=== PATIENT | male | born 1955 | race Caucasian/White ===

== ENCOUNTER 2021-05-24 13:51 | Outpatient (CLI) | payer OTHER ==
[2021-05-24 14:59] LABS: Mean Corpuscular HGB CONC 32.5 g/dL (32.0-36.0); Mean Corpuscular Hemoglobin 29.2 pg (27.0-33.0); Mean Platelet Volume 10.4 fl (7.4-10.4); Platelet Count 283 10x3/uL (150-450); RBC Distribution Width 13.5 % (11.5-14.5); Red Blood Cell (RBC) Count 4.79 10x6/uL (4.32-5.72)
[2021-05-24 15:16] LABS: INR-International Normal Ratio 0.9; PTT 23.1 sec (22.0-33.0); Prothrombin Time 10.4 sec (9.5-12.1)
[2021-05-25 07:57] LABS: SARS-CoV-2 PCR by NAA Not Detected (NotDetected)
== END 2021-05-24 13:52 | disposition home or self-care (01) ==
LOC: LABBT 13:51
PROVIDERS: ATTEND Neurological Surgery
DX: Z01.818 Encounter for other preprocedural examination (principal); M48.062 Spinal stenosis, lumbar region with neurogenic claudication; Z20.822 Contact with and (suspected) exposure to COVID-19
CPT/HCPCS: 85027; 85610; 85730; 93005; 93010; U0003; U0005

== ENCOUNTER 2021-05-27 05:51 | Day surgery (SDC) | payer OTHER ==
[2021-05-26 10:53] VITALS: BMI 28.9
[2021-05-27] MEDS ORDERED: Thrombin 5000 UNITS/5 ML VIAL ONE (06:10)
[2021-05-27] MEDS ORDERED: EPINEPHrine 1 MG/ML AMP ONE (06:10)
[2021-05-27] MEDS ORDERED: Neomycin-Polymyxin 1 ML AMP ONE (06:10)
[2021-05-27] MEDS ORDERED: Bupivacaine PF 0.5% 30 ML VIAL ONE (06:10)
[2021-05-27] MEDS ORDERED: Fentanyl 250 MCG/5 ML VIAL ONE (06:37)
[2021-05-27] MEDS ORDERED: Rocuronium Bromide 10 MG/ML (10ML VIAL) ONE (07:05)
[2021-05-27] MEDS ORDERED: PHENYLEPHRINE-NS 100 MCG/ML 10 ML SYRINGE ONE (07:05)
[2021-05-27] MEDS ORDERED: Ondansetron PF 4 MG/2 ML Vial ONE (07:05)
[2021-05-27] MEDS ORDERED: PROPOFOL 200 MG/20 ML VIAL ONE (07:05)
[2021-05-27] MEDS ORDERED: ePHEDrine 50 MG/ML VIAL ONE (07:05)
[2021-05-27] MEDS ORDERED: Esmolol 100 MG/10 ML VIAL ONE (07:05)
[2021-05-27] MEDS ORDERED: Ketorolac Tromethamine 30 MG/ML VIAL ONE (07:05)
[2021-05-27] MEDS ORDERED: Dexamethasone 20 MG/5 ML VIAL ONE (07:05)
[2021-05-27] MEDS ORDERED: Vecuronium 10 MG VIAL ONE (07:05)
[2021-05-27] MEDS ORDERED: Lidocaine 1% PF 5 ML VIAL ONE (07:05)
[2021-05-27] MEDS ORDERED: tiZANidine HCl 4 MG TAB PO PRN (07:14)
[2021-05-27] MEDS ORDERED: HYDROcodone/Acetaminophen 10/325 mg Tablet PO PRN (07:14)
[2021-05-27] MEDS ORDERED: Ondansetron PF 4 MG/2 ML Vial IVP PRN (07:14)
[2021-05-27] MEDS ORDERED: Morphine 2 MG/ML VIAL SLOW IVP PRN (07:14)
[2021-05-27] MEDS ORDERED: HYDROcodone/Acetaminophen 7.5/325 mg Tablet PO PRN (07:14)
[2021-05-27] MEDS ORDERED: Bisacodyl 10 MG SUPP PR PRN (07:14)
[2021-05-27] MEDS ORDERED: Acetaminophen 325 MG TAB PO PRN (07:14)
[2021-05-27] MEDS ORDERED: Promethazine 25 MG TAB PO PRN (07:14)
[2021-05-27] MEDS ORDERED: diphenhydrAMINE 50 MG/ML VIAL IVP PRN (07:14)
[2021-05-27] MEDS ORDERED: Sodium Chloride 0.9% 1,000 ML IV SCH (07:15)
[2021-05-27] MEDS ORDERED: Non-Formulary Item 1 EACH (Sildenafil Citrate [Sildenafil Citrate] 100 MG Tablet) PO PRN (07:18)
[2021-05-27] MEDS ORDERED: Lisinopril 20 MG TAB PO SCH (09:00)
[2021-05-27] MEDS ORDERED: HYDROmorphone 2 MG/ML VIAL ONE (10:44)
[2021-05-27] MEDS ORDERED: SUGAMMADEX SODIUM 200 MG/2 ML VIAL ONE (10:45)
[2021-05-27] MEDS ORDERED: Morphine Sulfate 2 MG/ML SYRINGE SLOW IVP PRN (11:25)
[2021-05-27] MEDS ORDERED: Ondansetron HCl/PF 4 MG/2 ML Vial IVP PRN (11:25)
[2021-05-27] MEDS ORDERED: HYDROmorphone 2 MG/ML VIAL SLOW IVP PRN (11:25)
[2021-05-27] MEDS ORDERED: Promethazine HCl 25 MG/ML VIAL IVPB PRN (11:25)
[2021-05-27] MEDS ORDERED: Promethazine HCl 25 MG/ML VIAL IM PRN (11:25)
[2021-05-27] MEDS ORDERED: PACU-Morphine 4MG/ML VIAL SLOW IVP PRN (11:25)
[2021-05-27] MEDS ORDERED: CEFAZOLIN 2 GM in Premix Bag 1 BAG IVPB SCH (14:00)
[2021-05-27] MEDS ORDERED: HYDROcodone/Acetaminophen 5/325 mg Tablet ONE (15:19)
[2021-05-27] MEDS ORDERED: Atorvastatin Calcium 40 MG TAB PO SCH (21:00)
[2021-05-27] MEDS ORDERED: Gabapentin 300 MG CAP PO SCH (21:00)
== END 2021-05-27 15:50 | disposition home or self-care (01) ==
LOC: SDC 05:51
PROVIDERS: ATTEND Neurological Surgery
PROC: 01NB0ZZ Release Lumbar Nerve, Open Approach (ICD-10-PCS; principal; 2021-05-27)
DX: M48.062 Spinal stenosis, lumbar region with neurogenic claudication (principal); E78.00 Pure hypercholesterolemia, unspecified; I10 Essential (primary) hypertension; Z79.899 Other long term (current) drug therapy; Z87.891 Personal history of nicotine dependence; Z88.8 Allergy status to other drugs, medicaments and biological substances; Z95.0 Presence of cardiac pacemaker
CPT/HCPCS: 76000; J0171; J0690; J1100; J1170; J1885; J2405; J2704; J3010; J3370; J3490; S0020

== ENCOUNTER 2022-05-04 13:04 | Outpatient (CLI) | payer OTHER ==
[2022-05-04 13:53] LABS: Hemoglobin 13.6 g/dL (13.5-17.5); Mean Corpuscular HGB CONC 32.5 g/dL (32.0-36.0); Mean Corpuscular Hemoglobin 28.6 pg (27.0-33.0); Mean Platelet Volume 9.9 fl (7.4-10.4); Platelet Count 350 10x3/uL (150-450); RBC Distribution Width 13.5 % (11.5-14.5); Red Blood Cell (RBC) Count 4.75 10x6/uL (4.32-5.72); White Blood Cell (WBC) Count 7.7 10x3/uL (3.5-10.5)
[2022-05-04 13:58] LABS: INR-International Normal Ratio 0.9; PTT 25.3 sec (22.0-33.0); Prothrombin Time 10.2 sec (9.5-12.1)
== END 2022-05-04 13:05 | disposition home or self-care (01) ==
LOC: LABBT 13:04
PROVIDERS: ATTEND Neurological Surgery
DX: Z01.818 Encounter for other preprocedural examination (principal); M43.16 Spondylolisthesis, lumbar region; M48.061 Spinal stenosis, lumbar region without neurogenic claudication; Z20.822 Contact with and (suspected) exposure to COVID-19
CPT/HCPCS: 85027; 85610; 85730; 87811; 93005; 93010

== ENCOUNTER 2022-05-09 06:02 | Observation (INO) | payer OTHER ==
[2022-05-09] MEDS ORDERED: Thrombin 5000 UNITS/5 ML VIAL ONE (06:25)
[2022-05-09] MEDS ORDERED: Bupivacaine PF 0.5% 30 ML VIAL ONE (06:25)
[2022-05-09] MEDS ORDERED: EPINEPHrine 1 MG/ML AMP ONE (06:25)
[2022-05-09] MEDS ORDERED: Neomycin-Polymyxin 1 ML AMP ONE (06:25)
[2022-05-09] MEDS ORDERED: HYDROcodone/Acetaminophen 7.5/325 mg Tablet PO PRN (07:16)
[2022-05-09] MEDS ORDERED: Ondansetron PF 4 MG/2 ML Vial IVP PRN (07:16)
[2022-05-09] MEDS ORDERED: diphenhydrAMINE 50 MG/ML VIAL IVP PRN (07:16)
[2022-05-09] MEDS ORDERED: Bisacodyl 10 MG SUPP PR PRN (07:16)
[2022-05-09] MEDS ORDERED: Milk Of Magnesia 30 ML UDCUP PO PRN (07:16)
[2022-05-09] MEDS ORDERED: Cyclobenzaprine 10 MG TAB PO PRN (07:16)
[2022-05-09] MEDS ORDERED: Morphine 2 MG/ML VIAL SLOW IVP PRN (07:16)
[2022-05-09] MEDS ORDERED: Mag-Al 1200 mg/1200 mg/30 ML UDCUP PO PRN (07:16)
[2022-05-09] MEDS ORDERED: Acetaminophen/Codeine 30-300mg Tablet PO PRN (07:16)
[2022-05-09] MEDS ORDERED: Prochlorperazine 10 MG/2 ML VIAL IM PRN (07:16)
[2022-05-09] MEDS ORDERED: fentaNYL Citrate/PF 100 MCG/2 ML SYRINGE ONE (07:29)
[2022-05-09] MEDS ORDERED: Esmolol 100 MG/10 ML VIAL ONE (07:30)
[2022-05-09] MEDS ORDERED: Ondansetron PF 4 MG/2 ML Vial ONE (07:30)
[2022-05-09] MEDS ORDERED: Vecuronium 10 MG VIAL ONE (07:30)
[2022-05-09] MEDS ORDERED: Lidocaine 1% PF 5 ML VIAL ONE (07:30)
[2022-05-09] MEDS ORDERED: Rocuronium Bromide 10 MG/ML (10ML VIAL) ONE (07:30)
[2022-05-09] MEDS ORDERED: Dexamethasone 20 MG/5 ML VIAL ONE (07:30)
[2022-05-09] MEDS ORDERED: SUGAMMADEX SODIUM 200 MG/2 ML VIAL ONE (07:30)
[2022-05-09] MEDS ORDERED: PROPOFOL 200 MG/20 ML VIAL ONE (07:30)
[2022-05-09] MEDS ORDERED: Phenylephrine 10 MG/ML VIAL ONE ×2 (07:30→13:35)
[2022-05-09] MEDS ORDERED: HYDROmorphone 0.5 MG/0.5 ML SYRINGE ONE (07:30)
[2022-05-09] MEDS ORDERED: CEFAZOLIN 2 GM VIAL ONE (07:36)
[2022-05-09] MEDS ORDERED: Sodium Chloride 0.9% 100 ML ONE (07:36)
[2022-05-09] MEDS ORDERED: HYDROmorphone 2 MG/ML VIAL ONE (14:16)
[2022-05-09] MEDS ORDERED: PROPOFOL 20 ML ONE (15:27)
[2022-05-09] MEDS ORDERED: Bacitracin Zinc Ointment 30 gm TUBE ONE (15:39)
[2022-05-09] MEDS ORDERED: CEFAZOLIN 2 GM in Sodium Chloride 0.9% 100 ML IVPB SCH (16:00)
[2022-05-09] MEDS ORDERED: Promethazine HCl 25 MG/ML VIAL IVPB PRN (16:30)
[2022-05-09] MEDS ORDERED: Promethazine HCl 25 MG/ML VIAL IM PRN (16:30)
[2022-05-09] MEDS ORDERED: Ondansetron HCl/PF 4 MG/2 ML Vial IVP PRN (16:30)
[2022-05-09] MEDS ORDERED: Fentanyl 100 MCG/2 ML VIAL ONE (16:52)
[2022-05-09 18:04] LABS: Hemoglobin 11.6 g/dL (14.0-18.0); Mean Corpuscular HGB CONC 32.4 g/dL (32.0-36.0); Mean Corpuscular Hemoglobin 30.1 pg (27.0-31.0); Mean Corpuscular Volume 92.8 fL (78.0-98.0); Mean Platelet Volume 7.9 fL (7.4-10.4); Platelet Count 309 thou/uL (130-400); RBC Distribution Width 12.7 % (11.5-14.5); Red Blood Cell (RBC) Count 3.87 mill/uL (4.70-6.10); White Blood Cell (WBC) Count 20.3 thou/uL (4.8-10.8)
[2022-05-09] MEDS: Pantoprazole 40 MG VIAL IVP SCH (20:17)
[2022-05-09] MEDS: Sodium Chloride 0.9% 1,000 ML IV SCH ×2 (20:54→21:16)
[2022-05-09] MEDS: HYDROcodone/Acetaminophen 10/325 mg Tablet PO PRN (21:15)
[2022-05-10] MEDS ORDERED: CEFAZOLIN 2 GM in Sodium Chloride 0.9% 100 ML IVPB SCH (05:00)
[2022-05-10] MEDS: Tamsulosin HCl 0.4 MG CAP PO SCH (06:17)
[2022-05-10 06:51] LABS: #Lymphocytes 1.8 thou/uL (1.20-3.40); #Monocytes 1.8 thou/uL (0.11-0.59); #Neutrophils 11.4 thou/uL (1.40-6.50); %Basophils 0.2 % (0.0-1.0); %Eosinophils 0.1 % (0.0-10.0); %Lymphocytes 11.8 % (21.0-51.0); %Monocytes 11.7 % (0.0-10.0); %Neutrophils 76.2 % (42.0-75.0); Hemoglobin 10.1 g/dL (14.0-18.0); Mean Corpuscular HGB CONC 32.1 g/dL (32.0-36.0); Mean Corpuscular Hemoglobin 29.7 pg (27.0-31.0); Mean Corpuscular Volume 92.6 fL (78.0-98.0); Platelet Count 247 thou/uL (130-400); RBC Distribution Width 12.8 % (11.5-14.5)
[2022-05-10 06:53] LABS: Anion Gap 15 mmol/L (10-20); BUN (Urea Nitrogen) 20 mg/dL (8.4-25.7); Calc. Creatinine Clearance 78 mL/min (70-130); Calcium 8.3 mg/dL (7.8-10.44); Carbon Dioxide 21 mmol/L (23-31); Chloride 109 mmol/L (98-107); Estimated GFR 72; Glucose 124 mg/dL (80-115); Potassium 4.7 mmol/L (3.5-5.1); Sodium 140 mmol/L (136-145)
[2022-05-10 07:43] LABS: Bilirubin Negative (Negative); Blood, Urine Large (Negative); Glucose, Urine (Dipstick) Negative (Negative); Ketone, Urine Negative (Negative); Leukocyte Small (Negative); Nitrite Negative (Negative); Protein, Urine (Dipstick) Negative (Neg-Trace); Specific Gravity, Urine 1.015 (1.005-1.030); Urobilinogen 0.2 mg/dL (Less than 2)
[2022-05-10 07:44] LABS: Clarity Clear (Clear)
[2022-05-10 07:45] LABS: Squamous Epithelial 0-3 HPF (0-3)
[2022-05-10] MEDS: Pantoprazole 40 MG VIAL IVP SCH (09:46)
[2022-05-10 11:09] VITALS: BMI 24.5
[2022-05-10] MEDS: HYDROcodone/Acetaminophen 10/325 mg Tablet PO PRN (11:23)
[2022-05-10] MEDS: Sodium Chloride 0.9% 1,000 ML IV SCH (11:37)
[2022-05-10] MEDS ORDERED: Sodium Chloride 0.9% 500 ML IVPB SCH (13:00)
[2022-05-10 13:05] LABS: Troponin I 0.017 ng/mL (< 0.028)
[2022-05-10] MEDS ORDERED: Fentanyl 100 MCG/2 ML VIAL SLOW IVP PRN (13:34)
[2022-05-10] MEDS: Gabapentin 300 MG CAP PO SCH ×2 (14:27→20:23)
[2022-05-10] MEDS: CEFAZOLIN 2 GM in Sodium Chloride 0.9% 100 ML IVPB SCH ×2 (14:28→21:40)
[2022-05-10 16:28] LABS: #Lymphocytes 1.9 thou/uL (1.20-3.40); #Monocytes 1.5 thou/uL (0.11-0.59); #Neutrophils 9.4 thou/uL (1.40-6.50); %Basophils 0.3 % (0.0-1.0); %Eosinophils 0.3 % (0.0-10.0); %Lymphocytes 14.8 % (21.0-51.0); %Monocytes 11.8 % (0.0-10.0); %Neutrophils 72.7 % (42.0-75.0); Mean Corpuscular HGB CONC 32.4 g/dL (32.0-36.0); Mean Corpuscular Hemoglobin 30.2 pg (27.0-31.0); Mean Corpuscular Volume 93.3 fL (78.0-98.0); Mean Platelet Volume 7.7 fL (7.4-10.4); Platelet Count 241 thou/uL (130-400); RBC Distribution Width 12.9 % (11.5-14.5); White Blood Cell (WBC) Count 12.9 thou/uL (4.8-10.8)
[2022-05-10 16:48] LABS: Anion Gap 15 mmol/L (10-20); BUN (Urea Nitrogen) 18 mg/dL (8.4-25.7); Calc. Creatinine Clearance 88 mL/min (70-130); Calcium 8.2 mg/dL (7.8-10.44); Carbon Dioxide 20 mmol/L (23-31); Chloride 111 mmol/L (98-107); Estimated GFR 83; Glucose 138 mg/dL (80-115); Sodium 142 mmol/L (136-145)
[2022-05-10] MEDS ORDERED: Sodium Chloride 0.9% 500 ML IV SCH (17:00)
[2022-05-10] MEDS: Acetaminophen/Codeine 30-300mg Tablet PO PRN ×2 (17:49→21:50)
[2022-05-10] MEDS ORDERED: Atorvastatin Calcium 40 MG TAB PO SCH (21:00)
[2022-05-10] MEDS ORDERED: Non-Formulary Item 1 EACH (Atorvastatin Calcium [Atorvastatin Calcium] 80 MG Tablet) PO SCH (21:00)
[2022-05-11] MEDS: Sodium Chloride 0.9% 1,000 ML IV SCH ×2 (00:29→11:35)
[2022-05-11] MEDS: CEFAZOLIN 2 GM in Sodium Chloride 0.9% 100 ML IVPB SCH ×2 (06:10→14:54)
[2022-05-11] MEDS: Tamsulosin HCl 0.4 MG CAP PO SCH (06:10)
[2022-05-11] MEDS ORDERED: Lisinopril 20 MG TAB PO SCH (09:00)
[2022-05-11] MEDS: Gabapentin 300 MG CAP PO SCH ×2 (09:27→14:56)
[2022-05-11] MEDS: Acetaminophen/Codeine 30-300mg Tablet PO PRN ×2 (09:30→14:56)
[2022-05-11 13:25] VITALS: BP 150/81; TEMP 98.5
== END 2022-05-11 16:07 | disposition home or self-care (01) ==
LOC: SDC 06:02 → SURG A 07:20
PROVIDERS: ADMIT Neurological Surgery; ATTEND Neurological Surgery
PROC: 01NB0ZZ Release Lumbar Nerve, Open Approach (ICD-10-PCS; principal; 2022-05-09)
DX: M51.16 Intervertebral disc disorders with radiculopathy, lumbar region (principal); M48.061 Spinal stenosis, lumbar region without neurogenic claudication; M43.16 Spondylolisthesis, lumbar region; Z88.8 Allergy status to other drugs, medicaments and biological substances; E78.00 Pure hypercholesterolemia, unspecified; G89.29 Other chronic pain; I10 Essential (primary) hypertension; Z95.0 Presence of cardiac pacemaker; Z79.899 Other long term (current) drug therapy; Z87.891 Personal history of nicotine dependence
CPT/HCPCS: 36415; 76000; 80048; 81003; 81015; 84484; 85025; 85027; 86850; 86900; 86901; 93005; 93010; 93970; 96365; 96375; 96376; C1713; C1768; C1776; C9113; G0378; J0171; J0690; J1100; J1170; J2370; J2405; J2704; J3010; J3370; J3490; J7030; J7050; L0639; S0020

== ENCOUNTER 2024-09-14 22:07 | Inpatient (IN) | payer MEDICARE, OTHER ==
[2024-09-14] MEDS ORDERED: Ketorolac Tromethamine 30 MG (1 mL) VIAL ONE (22:21)
[2024-09-14] MEDS ORDERED: Acetaminophen 500 MG TAB ONE (22:21)
[2024-09-14] MEDS ORDERED: cefTRIAXone (ROCEPHIN) 1 GM VIAL ONE (22:22)
[2024-09-14 22:23] LABS: #Basophils 0.14 10x3/uL (0.0-0.2); %Basophils 0.7 % (0.0-1.0); %Lymphocytes 8.8 % (21.0-51.0); %Monocytes 8.5 % (0.0-10.0); %Neutrophils 80.3 % (42.0-75.0); Hematocrit 44.8 % (42.0-52.0); Hemoglobin 13.4 g/dL (14.0-18.0); Mean Corpuscular HGB CONC 29.9 g/dL (32.0-36.0); Mean Corpuscular Hemoglobin 24.7 pg (27.0-31.0); Mean Corpuscular Volume 82.7 fL (78.0-98.0); Mean Platelet Volume 9.5 fL (7.4-10.4); Platelet Count 296 10x3/uL (130-400); RBC Distribution Width 17.4 % (11.5-14.5); Red Blood Cell (RBC) Count 5.42 mill/uL (4.70-6.10)
[2024-09-14] MEDS ORDERED: Sodium Chloride 0.9% 100 ML ONE (22:24)
[2024-09-14] MEDS ORDERED: cefTRIAXone (ROCEPHIN) 2 GM VIAL ONE (22:24)
[2024-09-14 22:38] LABS: Actual Bicarbonate (HCO3v) 19.8 mEq/L (22-28); Calcium, Ionized (venous) 0.85 mmol/L (1.16-1.32); Chloride (VBG) 104 mmol/L (98-106); Hematocrit-VBG 44 % (42.0-52.0); Hemoglobin (Hb) 14.8 g/dL (12.6-17.4); Potassium (VBG) 5.22 mmol/L (3.70-5.30); Sodium 133 mmol/L (133-146); pH (venous) 7.441 (7.32-7.43)
[2024-09-14 22:53] LABS: ALT (SGPT) 19 U/L (8-55); AST (SGOT) 19 U/L (5-34); Albumin 3.2 g/dL (3.4-4.8); Alkaline Phosphatase 63 U/L (40-110); Anion Gap 14 mmol/L (10-20); BUN (Urea Nitrogen) 18 mg/dL (8.4-25.7); Bilirubin, Total 0.9 mg/dL (0.2-1.2); Calc. Creatinine Clearance 0 mL/min (70-130); Carbon Dioxide 17 mmol/L (23-31); Chloride 105 mmol/L (98-107); Estimated GFR 40; Globulin 2.5 g/dL (2.4-3.5); Glucose 128 mg/dL (83-110); Potassium 5.2 mmol/L (3.5-5.1); Protein, Total 5.7 g/dL (5.8-8.1); Sodium 131 mmol/L (136-145)
[2024-09-14] MEDS ORDERED: NOREPINEPHRINE 8 MG/250 ML-D5W 250 ML ONE (23:01)
[2024-09-14] MEDS ORDERED: Ipratropium/Albuterol 3 ML NEB NEB PRN (23:17)
[2024-09-14] MEDS ORDERED: Ondansetron PF 4 MG/2 ML Vial IVP PRN (23:18)
[2024-09-14] MEDS ORDERED: Vancomycin 1 GM in Premix 1 BAG IVPB SCH (23:30)
[2024-09-15] MEDS ORDERED: Benzonatate 100 MG CAP PO PRN (00:04)
[2024-09-15 00:31] LABS: Bacteria/HPF None Seen HPF (None Seen); Bilirubin Negative (Negative); Blood, Urine Negative (Negative); CAUTI Indications for Culture Fever or rigors; Clarity Clear (Clear); Glucose, Urine (Dipstick) Normal (Negative); Ketone, Urine 10 mg/dL (Negative); Leukocyte Negative Leu/uL (Negative); Nitrite Negative (Negative); Protein, Urine (Dipstick) 30 mg/dL (Neg-Trace); RBC/HPF None Seen HPF (0-3); Specific Gravity, Urine 1.012 (1.002-1.036); Squamous Epithelial 0-3 HPF (0-3); Urobilinogen Normal mg/dL (Less than 2); WBC/HPF 0-3 HPF (0-3)
[2024-09-15 00:34] LABS: Urine Culture Reflex No No
[2024-09-15] MEDS ORDERED: NOREPINEPHRINE 8 MG/250 ML-D5W 250 ML IVPB SCH (01:30)
[2024-09-15] MEDS: Vancomycin (BATCH) 2 GM in Premix 1 BAG IVPB SCH (01:32)
[2024-09-15] MEDS: Sodium Chloride 0.9% 1,000 ML IV SCH (01:43)
[2024-09-15] MEDS: traMADol HCl 50 MG TAB PO SCH (02:13)
[2024-09-15 04:30] LABS: #Basophils 0.18 10x3/uL (0.0-0.2); %Basophils 0.8 % (0.0-1.0); %Eosinophils 1.1 % (0.0-10.0); %Lymphocytes 9.1 % (21.0-51.0); %Neutrophils 79.2 % (42.0-75.0); Hematocrit 42.1 % (42.0-52.0); Hemoglobin 12.4 g/dL (14.0-18.0); Mean Corpuscular HGB CONC 29.5 g/dL (32.0-36.0); Mean Corpuscular Hemoglobin 24.9 pg (27.0-31.0); Mean Corpuscular Volume 84.5 fL (78.0-98.0); Mean Platelet Volume 10.4 fL (7.4-10.4); Platelet Count 306 10x3/uL (130-400); RBC Distribution Width 17.2 % (11.5-14.5); Red Blood Cell (RBC) Count 4.98 mill/uL (4.70-6.10)
[2024-09-15 04:45] LABS: Anion Gap 14 mmol/L (10-20); BUN (Urea Nitrogen) 19 mg/dL (8.4-25.7); Calc. Creatinine Clearance 47 mL/min (70-130); Calcium 7.8 mg/dL (7.8-10.44); Carbon Dioxide 19 mmol/L (23-31); Chloride 106 mmol/L (98-107); Estimated GFR 38; Glucose 146 mg/dL (83-110); Potassium 5.5 mmol/L (3.5-5.1); Sodium 133 mmol/L (136-145)
[2024-09-15 04:54] VITALS: BMI 29.6
[2024-09-15 04:59] LABS: Vancomycin, Random 18.1 ug/mL (See Comment)
[2024-09-15] MEDS: Insulin Regular, Human 100 UNIT/ML 10 ML VIAL IVP SCH (06:19)
[2024-09-15] MEDS: Dextrose 50% Abboject 50 ML SYRINGE SLOW IVP PRN (06:19)
[2024-09-15] MEDS: Sodium Bicarbonate 150 MEQ in Sterile Water 1,000 ML IV SCH (06:42)
[2024-09-15] MEDS: Cefepime 2 GM in Sodium Chloride 0.9% 100 ML IVPB SCH (08:17)
[2024-09-15] MEDS: Famotidine/PF 20 mg/2ml Vial SLOW IVP SCH (08:19)
[2024-09-15] MEDS: Hydrocortisone Sod Succ/PF 100 mg/2 ml Vial IVP SCH ×2 (08:19→12:47)
[2024-09-15] MEDS: Enoxaparin 40 MG (0.4 mL) SYRINGE SC SCH (08:20)
[2024-09-15] MEDS: Gabapentin 300 MG CAP PO SCH (08:20)
[2024-09-15] MEDS: traMADol HCl 50 MG TAB PO PRN (08:21)
[2024-09-15 11:12] LABS: Anion Gap 12 mmol/L (10-20); BUN (Urea Nitrogen) 18 mg/dL (8.4-25.7); Calc. Creatinine Clearance 71 mL/min (70-130); Carbon Dioxide 21 mmol/L (23-31); Chloride 107 mmol/L (98-107); Estimated GFR 63; Glucose 137 mg/dL (83-110); Potassium 4.7 mmol/L (3.5-5.1); Sodium 135 mmol/L (136-145)
[2024-09-15] MEDS: Acetaminophen 325 MG TAB PO PRN (15:22)
[2024-09-15] MEDS: hydrALAZINE 10 MG TAB PO PRN (16:38)
[2024-09-15] MEDS: Atorvastatin Calcium 40 MG TAB PO SCH (20:38)
[2024-09-15] MEDS: Carvedilol 6.25 MG TAB PO SCH (20:38)
[2024-09-15] MEDS: Melatonin 3 MG TAB PO PRN (20:39)
[2024-09-15] MEDS: Guaifenesin DM 100-10/5 ML UDCUP PO PRN (20:41)
[2024-09-15] MEDS: Vancomycin (BATCH) 1.5 GM in Premix 1 BAG IVPB SCH (22:52)
[2024-09-15] MEDS ORDERED: VANCOMYCIN 1.25 GM/250 ML BAG 1.25 GM in Premix 1 BAG IVPB SCH (23:00)
[2024-09-16 06:29] LABS: Vancomycin, Random 20.5 ug/mL (See Comment)
[2024-09-16 09:47] LABS: #Basophils Less than 0.03 10x3/uL (0.0-0.2); #Eosinophils Less than 0.03 10x3/uL (0.0-0.7); %Basophils 0.1 % (0.0-1.0); %Eosinophils 0.1 % (0.0-10.0); %Monocytes 5.2 % (0.0-10.0); %Neutrophils 88.7 % (42.0-75.0); Hematocrit 43.3 % (42.0-52.0); Hemoglobin 13.1 g/dL (14.0-18.0); Mean Corpuscular HGB CONC 30.3 g/dL (32.0-36.0); Mean Corpuscular Hemoglobin 24.1 pg (27.0-31.0); Mean Corpuscular Volume 79.6 fL (78.0-98.0); Platelet Count 323 10x3/uL (130-400); RBC Distribution Width 18.5 % (11.5-14.5); Red Blood Cell (RBC) Count 5.44 mill/uL (4.70-6.10)
[2024-09-16] MEDS: Lisinopril 20 MG TAB PO SCH (09:56)
[2024-09-16] MEDS: predniSONE 20 MG TAB PO SCH (12:32)
[2024-09-16] MEDS: traZODone HCl 50 MG TAB PO PRN (19:44)
[2024-09-16] MEDS: Famotidine 20 MG TAB PO SCH (19:57)
[2024-09-16 20:09] VITALS: BP 167/76; TEMP 98.1
[2024-09-17] MEDS ORDERED: predniSONE 20 MG TAB PO SCH (08:00)
== END 2024-09-17 15:10 | disposition home or self-care (01) | DRG 871 ==
LOC: ERS 22:07 → CCU 23:28 → T4-B 09-15 16:17
PROVIDERS: ADMIT Hospitalist; ATTEND Internal Medicine
DX: A41.9 Sepsis, unspecified organism (principal); G93.41 Metabolic encephalopathy; J18.9 Pneumonia, unspecified organism; R65.21 Severe sepsis with septic shock; E27.40 Unspecified adrenocortical insufficiency; N17.9 Acute kidney failure, unspecified; M06.9 Rheumatoid arthritis, unspecified; E66.01 Morbid (severe) obesity due to excess calories; I10 Essential (primary) hypertension; E78.5 Hyperlipidemia, unspecified; K21.9 Gastro-esophageal reflux disease without esophagitis; G89.29 Other chronic pain; M54.9 Dorsalgia, unspecified; R09.02 Hypoxemia; Z68.29 Body mass index [BMI] 29.0-29.9, adult; Z88.8 Allergy status to other drugs, medicaments and biological substances; Z79.52 Long term (current) use of systemic steroids
CPT/HCPCS: 36415; 51702; 71045; 80048; 80053; 80202; 81001; 82805; 83605; 84145; 85025; 87040; 87081; 87086; 87428; 93005; 94760; 96365; 96367; 96368; 96375; A4217; J0692; J0696; J1650; J1720; J1815; J1885; J3370; J3490; J7030; J7512; J7999

== ENCOUNTER 2024-10-13 09:33 | Outpatient (CLI) | payer OTHER | END 2024-10-13 09:34 | disposition home or self-care (01) | LOC: RAD 09:33 | PROVIDERS: ATTEND Internal Medicine Critical Care Medicine | DX: R06.00 Dyspnea, unspecified (principal) | CPT/HCPCS: 71046 ==